=== PATIENT | male | born 1985 | race African-American/Black ===

== ENCOUNTER 2016-06-01 08:50 | Emergency (ER) | payer SELFPAY ==
[2016-06-01 08:53] VITALS: BP 132/60; BMI 21.9
--- NOTE | 2016-06-01 09:12 | DR.GENAD ---
HPI - PCP Primary Care Physician: nfd - Complaint/Symptoms Chief Complaint Doctors Comments: Patient admits to abdominal pain for four days. Denies vomiting, nausea or diarrhea. Last BM was three days ago. His pain is 10/10 ins seveity, not associated with fever, quality is sharp, no modifying factor. Chief Complaint:: diffuse abdominal pain x 4 days - Source History Provided: Patient - Mode of Arrival Mode of Arrival: Ambulatory - Timing Onset of Chief Complaint: 05/28/16 PMH - PMH Past Medical History: No Past Surgical History: No - Family History History of Family Medical Conditions: No - Social History Does patient currently use any type of tobacco product: Yes Have you used tobacco products in the last 12 months: Yes Type of Tobacco Use: Cigarettes Does any household member use tobacco: No Alcohol Use: None Do you use any recreational Drugs:: No Lives With: Family Lives Where: Home - infectious screening In the last 2 months have you had wt loss of >10#?: NO Have you had fever, night sweats or hemotysis?: No Have you traveled outside the country in the last 6 months?: No Isolation: Standard ROS - Review of Systems Constitutional: No Symptoms Reported Eyes: No Symptoms Reported ENTM: No Symptoms Reported Respiratoy: No Symptoms Reported Cardiovascular: No Symptoms Reported Gastrointestinal/Abdominal: See HPI, Abdominal Pain. negative: Diarrhea, Nausea , Vomiting Genitourinary: No Symptoms Reported Neurological: No Symptoms Reported Musculoskeletal: No Symptoms Reported Integumentary: No Symptoms Reported Hematologic/Lymphatic: No Symptoms Reported Endocrine: No Symptoms Reported Psychiatric: No Symptoms Reported All Other Systems: Reviewed and Negative PE - Vital Signs Vitals: Temperature 98.5 F Pulse Rate 49 Respiratory Rate 20 Blood Pressure 132/60 O2 Sat by Pulse Oximetry 96 - General Limitations: No Limitations General Appearance: Alert, In No Apparent Distress - Head Head Exam: Normal Inspection, Atraumatic - Eyes Eye exam: Normal Appearance, PERRL, EOMI - ENT ENT Exam: Normal Exam, Normal Oropharynx External Ear Exam: Normal External Inspection TM/Canal Exam: Bilateral Normal Nose Exam: Normal Nose Exam Mouth Exam: Normal Inspection Throat Exam: Normal Inspection - Neck Neck Exam: Normal Inspection, Full ROM - Chest Chest Inspection: Normal Inspection - Respiratory Respiratory Exam: Normal Lung Sounds Bilat Respiratory Exam: Bilateral Clear to Auscultation - Cardiovascular Cardiovascular Exam: Regular Rate - Abdominal Exam Abdominal Exam: Normal Inspection Abdominal Tenderness: Epigastrium, Suprapubic - Extremities Extremities Exam: Normal Inspection - Back Back Exam: Normal Inspection - Neurologic Neurological Exam: Alert, Oriented X3, CN II-XII Intact - Psychiatric Psychiatric Exam: Normal Affect - Skin Skin Exam: Warm, Dry, Intact ROR - Labs Reviewed Laboratory Results Reviewed?: Yes (H pylori positive) Result Diagrams: 06/01/16 09:31 06/01/16 09:31 Laboratory: WBC 6.5 X10^3/uL (3.6-10.0) 06/01/16 09:31 RBC 4.94 X10^6/uL (4.7-6.0) 06/01/16 09:31 Hgb 14.7 g/dL (13.5-18.0) 06/01/16 09:31 Hct 43.7 % (42.0-54.0) 06/01/16 09:31 MCV 88.5 fL (80.0-100.0) 06/01/16 09: MCH 29.8 pg (27.0-34.0) 06/01/16 09:31 MCHC 33.7 g/dL (33.0-35.0) 06/01/16 09:31 RDW 13.7 % (11.6-16.5) 06/01/16 09:31 Plt Count 203 X10^3/uL (150.0-450.0) 06/01/16 09:31 MPV 9.3 fL (7.4-11.0) 06/01/16 09:31 Neut % 66.7 % (42.0-75.0) 06/01/16 09:31 Lymph % 21.6 % (21.0-51.0) 06/01/16 09:31 [place] % 7.7 % (0.0-13.0) 06/01/16 09: Eos % 1.3 % (0.9-2.9) 06/01/16 09: Baso % 2.7 % (0.2-1.0) H 06/01/16 09:31 Neut # 4.4 x10^3/uL (2.2-4.8) 06/01/16 09:31 Lymph # 1.4 X10^3/uL (1.3-2.9) 06/01/16 09:31 [place] # 0.5 x10^3/uL (0.3-0.8) 06/01/16 09:31 Eos # 0.1 x10^3/uL (0.0-0.2) 06/01/16 09:31 Baso # 0.2 X10^3/uL (0.0-0.1) H 06/01/16 09:31 Absolute Nucleated RBC 0.1 /100WBC 06/01/16 09:31 Sodium 139 mmol/L (136-145) 06/01/16 09:31 Corrected Sodium TNP 06/01/16 09:31 Potassium 4.4 mmol/L (3.5-5.1) 06/01/16 09:31 Chloride 101 mmol/L (98-107) 06/01/16 09:31 Carbon Dioxide 30.1 mmol/L (21-32) 06/01/16 09:31 BUN 12 mg/dL (7-18) 06/01/16 09:31 Creatinine 1.07 mg/dL (0.70-1.30) 06/01/16 09:31 Est GFR (MDRD) Af Amer > 60 (>60) 06/01/16 09:31 Est GFR (MDRD) Non-Af > 60 (>60) 06/01/16 09:31 Glucose 96 mg/dL (65-99) 06/01/16 09:31 Calcium 9.4 mg/dL (8.5-10.1) 06/01/16 09:31 Corrected Calcium TNP 06/01/16 09:31 Total Bilirubin 0.80 mg/dL (0.2-1.0) 06/01/16 09:31 AST 19 Units/L (15-37) 06/01/16 09:31 ALT 16 Units/L (12-78) 06/01/16 09:31 Alkaline Phosphatase 74 Units/L (46-116) 06/01/16 09:31 C-Reactive Protein 10.00 mg/L (0-3.0) H 06/01/16 09:31 Total Protein 8.3 g/dL (6.4-8.2) H 06/01/16 09:31 Albumin 4.2 g/dL (3.4-5.0) 06/01/16 09:31 Globulin 4.1 g/dL (2.5-4.5) 06/01/16 09:31 Albumin/Globulin Ratio 1.0 Ratio (1.1-2.1) L 06/01/16 09:31 H. 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
[2016-06-01] MEDS ORDERED: BENTYL I.M. INJ 10 MG IM ONE ×2 (09:17→09:23)
[2016-06-01 09:49] LABS: ALANINE AMINOTRANSFERASE 16 Units/L (12-78); ALBUMIN 4.2 g/dL (3.4-5.0); ALKALINE PHOSPHATASE 74 Units/L (46-116); ASPARTATE AMINO TRANSFERASE 19 Units/L (15-37); BASOPHILS # (AUTO) 0.2 X10^3/uL (0.0-0.1); BASOPHILS % (AUTO) 2.7 % (0.2-1.0); BLOOD UREA NITROGEN 12 mg/dL (7-18); CALCIUM 9.4 mg/dL (8.5-10.1); CARBON DIOXIDE 30.1 mmol/L (21-32); CHLORIDE 101 mmol/L (98-107); CREATININE 1.07 mg/dL (0.70-1.30); EOSINOPHILS # (AUTO) 0.1 x10^3/uL (0.0-0.2); EOSINOPHILS % (AUTO) 1.3 % (0.9-2.9); GLUCOSE 96 mg/dL (65-99); HEMATOCRIT 43.7 % (42.0-54.0); HEMOGLOBIN 14.7 g/dL (13.5-18.0); LYMPHOCYTES # (AUTO) 1.4 X10^3/uL (1.3-2.9); LYMPHOCYTES % (AUTO) 21.6 % (21.0-51.0); MEAN CORPUSCULAR HEMOGLOBIN 29.8 pg (27.0-34.0); MEAN CORPUSCULAR HGB CONC 33.7 g/dL (33.0-35.0); MEAN CORPUSCULAR VOLUME 88.5 fL (80.0-100.0); MEAN PLATELET VOLUME 9.3 fL (7.4-11.0); MONOCYTES # (AUTO) 0.5 x10^3/uL (0.3-0.8); MONOCYTES % (AUTO) 7.7 % (0.0-13.0); NEUTROPHILS # (AUTO) 4.4 x10^3/uL (2.2-4.8); NEUTROPHILS % (AUTO) 66.7 % (42.0-75.0); PLATELET COUNT 203 X10^3/uL (150.0-450.0); RED BLOOD COUNT 4.94 X10^6/uL (4.7-6.0); RED CELL DISTRIBUTION WIDTH 13.7 % (11.6-16.5); SODIUM 139 mmol/L (136-145); TOTAL PROTEIN 8.3 g/dL (6.4-8.2); WHITE BLOOD COUNT 6.5 X10^3/uL (3.6-10.0); eGFR BLACK RACES > 60 (>60); eGFR NON BLACK RACES > 60 (>60)
[2016-06-01] MEDS ORDERED: LEVSIN/MAALOX/LIDOC VISC PO ONE (10:11)
== END 2016-06-01 10:17 | disposition home or self-care (01) ==
LOC: ER 08:56
DX: K29.70 Gastritis, unspecified, without bleeding (principal)
CPT/HCPCS: 36415; 80053; 85025; 86140; 86677; 96372; 99282; J0500

== ENCOUNTER 2016-10-06 07:35 | Emergency (ER) | payer SELFPAY ==
[2016-10-06 07:41] VITALS: BP 129/71; BMI 23.1
[2016-10-06] MEDS ORDERED: ZOFRAN INJ 4 MG VIAL IM ONE (08:35)
[2016-10-06] MEDS ORDERED: NS 1000 ML 1,000 ML IV ONE (08:35)
--- NOTE | 2016-10-06 08:37 | DR.GENAD ---
HPI - PCP Primary Care Physician: NONE - HPI Comment HPI Comment: HISTORY BELOW. - Complaint/Symptoms Chief Complaint Doctors Comments: NAUSEA, VOMITING, DIARRHEA TIMES3 DAYS. WORSE TODAY. PATIENT IS WEAK. Chief Complaint:: THROWING UP AND RUNNING OFF SINCE LASTNIGHT "IM VERY WEAK" - Nurses notes reviewed Nurses Notes Review: Yes - Source History Provided: Patient - Mode of Arrival Mode of Arrival: Ambulatory - Timing Onset of Chief Complaint: 10/05/16 Came on: Suddenly - Duration Duration: Constant Duration: Days - Severity Severity: Moderate PMH - PMH Past Medical History: No Past Surgical History: No - Family History History of Family Medical Conditions: No - Social History Does patient currently use any type of tobacco product: Yes Have you used tobacco products in the last 12 months: Yes Type of Tobacco Use: Cigarettes How many years tobacco product used: 5 Does any household member use tobacco: No Alcohol Use: None Do you use any recreational Drugs:: No Lives With: Family Lives Where: Home - infectious screening In the last 2 months have you had wt loss of >10#?: NO Have you had fever, night sweats or hemotysis?: No Have you traveled outside the country in the last 6 months?: No Isolation: Standard ROS - Review of Systems Constitutional: Weakness, Fatigue Eyes: No Symptoms Reported ENTM: No Symptoms Reported Respiratoy: No Symptoms Reported Cardiovascular: No Symptoms Reported Gastrointestinal/Abdominal: Abdominal Pain, Diarrhea, Nausea, Vomiting Genitourinary: No Symptoms Reported Neurological: No Symptoms Reported Musculoskeletal: No Symptoms Reported Integumentary: No Symptoms Reported Hematologic/Lymphatic: No Symptoms Reported Endocrine: No Symptoms Reported All Other Systems: Reviewed and Negative PE - Vital Signs Vitals: Temperature 97.8 F Pulse Rate 50 Respiratory Rate 18 Blood Pressure 129/71 O2 Sat by Pulse Oximetry 129 - General Limitations: No Limitations General Appearance: Alert - Head Head Exam: Normal Inspection - Eyes Eye exam: Normal Appearance - ENT ENT Exam: Normal External Ear Exam External Ear Exam: Normal External Inspection TM/Canal Exam: Bilateral Normal Nose Exam: Normal Nose Exam Mouth Exam: Normal Inspection Throat Exam: Normal Inspection - Neck Neck Exam: Normal Inspection - Chest Chest Inspection: Symmetric Chest Wall Rise - Respiratory Respiratory Exam: Normal Lung Sounds Bilat Respiratory Exam: Bilateral Clear to Auscultation - Cardiovascular Cardiovascular Exam: Regular Rate, Normal Rhythm, Normal Heart Sounds - Abdominal Exam Abdominal Exam: Normal Bowel Sounds, Soft, Tenderness Abdominal Tenderness: Diffuse, Moderate - Extremities Extremities Exam: Normal Inspection - Back Back Exam: Normal Inspection - Neurologic Neurological Exam: Alert, Oriented X3 - Psychiatric Psychiatric Exam: Normal Affect - Skin Skin Exam: Dry MDM - Differential Diagnosis Differential Diagnosis: GASTROENTERITIS, ABDOMINAL PAIN Course - Treatment Treatment: SEE ORDERS. - Education/Counseling Education/Counseling: Patient, Education Educated On: Treatment, Diagnosis, Needs for Follow Up ROR - Labs Reviewed Laboratory Results Reviewed?: Yes Result Diagrams: 10/06/16 08:42 10/06/16 08:42 Laboratory: WBC 6.4 X10^3/uL (3.6-10.0) 10/06/16 08:42 RBC 4.94 X10^6/uL (4.7-6.0) 10/06/16 08:42 Hgb 14.9 g/dL (13.5-18.0) 10/06/16 08:42 Hct 43.4 % (42.0-54.0) 10/06/16 08:42 MCV 87.8 fL (80.0-100.0) 10/06/16 08:42 MCH 30.2 pg (27.0-34.0) 10/06/16 08:42 MCHC 34.4 g/dL (33.0-35.0) 10/06/16 08:42 RDW 14.0 % (11.6-16.5) 10/06/16 08:42 Plt Count 182 X10^3/uL (150.0-450.0) 10/06/16 08:42 MPV 9.0 fL (7.4-11.0) 10/06/16 08:42 Neut % 78.4 % (42.0-75.0) H 10/06/16 08:42 Lymph % 11.3 % (21.0-51.0) L 10/06/16 08:42 [place] % 8.3 % (0.0-13.0) 10/06/16 08:42 Eos % 1.6 % (0.9-2.9) 10/06/16 08:42 Baso % 0.4 % (0.2-1.0) 10/06/16 08:42 Neut # 5.0 x10^3/uL (2.2-4.8) H 10/06/16 08:42 Lymph # 0.7 X10^3/uL (1.3-2.9) L 10/06/16 08:42 [place] # 0.5 x10^3/uL (0.3-0.8) 10/06/16 08:42 Eos # 0.1 x10^3/uL (0.0-0.2) 10/06/16 08:42 Baso # 0.0 X10^3/uL (0.0-0.1) 10/06/16 08:42 Absolute Nucleated RBC 0.0 /100WBC 10/06/16 08:42 Sodium 134 mmol/L (136-145) L 10/06/16 08:42 Corrected Sodium TNP 10/06/16 08:42 Potassium 4.2 mmol/L (3.5-5.1) 10/06/16 08:42 Chloride 101 mmol/L (98-107) 10/06/16 08:42 Carbon Dioxide 31.5 mmol/L (21-32) 10/06/16 08:42 BUN 9 mg/dL (7-18) 10/06/16 08:42 Creatinine 1.10 mg/dL (0.70-1.30) 10/06/16 08:42 Est GFR (MDRD) Af Amer > 60 (>60) 10/06/16 08:42 Est GFR (MDRD) Non-Af > 60 (>60) 10/06/16 08:42 Glucose 96 mg/dL (65-99) 10/06/16 08:42 Calcium 8.7 mg/dL (8.5-10.1) 10/06/16 08:42 Corrected Calcium TNP 10/06/16 08:42 Total Bilirubin 0.40 mg/dL (0.2-1.0) 10/06/16 08:42 AST 22 Units/L (15-37) 10/06/16 08:42 ALT 21 Units/L (12-78) 10/06/16 08:42 Alkaline Phosphatase 67 Units/L (46-116) 10/06/16 08:42 Total Protein 7.4 g/dL (6.4-8.2) 10/06/16 08:42 Albumin 3.8 g/dL (3.4-5.0) 10/06/16 08:42 Globulin 3.6 g/dL (2.5-4.5) 10/06/16 08:42 Albumin/Globulin Ratio 1.1 Ratio (1.1-2.1) 10/06/16 08:42 Amylase 67 Units/L (25-115) 10/06/16 08:42 Lipase 71 Units/L (73-393) L 10/06/16 08:42 Specimen Type Clean catch urine 10/06/16 11:02 Urine Color Yellow (YELLOW) 10/06/16 11:02 Urine Appearance Clear (CLEAR) 10/06/16 11:02 Urine pH 5.0 (5.0 - 8.0) 10/06/16 11:02 Ur Specific [place] 1.020 (1.000-1.030) 10/06/16 11:02 Urine Protein Negative (NEGATIVE) 10/06/16 11:02 Urine Glucose (UA) Negative (NEGATIVE) 10/06/16 11:02 Urine Ketones 3+ (NEGATIVE) 10/06/16 11:02 Urine Occult Blood 1+ (NEGATIVE) 10/06/16 11:02 Urine Nitrite Negative (NEGATIVE) 10/06/16 11:02 Urine Bilirubin Negative (NEGATIVE) 10/06/16 11:02 Urine Urobilinogen Normal (NORMAL) 10/06/16 11:02 Ur Leukocyte Esterase Negative (NEGATIVE) 10/06/16 11:02 Urine RBC Rare /HPF (NEGATIVE) 10/06/16 11:02 Urine WBC None seen /HPF (NEGATIVE) 10/06/16 11:02 Ur Squamous Epith Cells Rare /HPF (NEGATIVE) 10/06/16 11:02 Urine Bacteria Negative /HPF (NEGATIVE) 10/06/16 11:02 Urine Mucus Moderate /HPF (NEGATIVE) 10/06/16 11:02 Ur Culture Indicated? No/not indicated 10/06/16 11:02 - XRAY XRAY Interpreted by: Radiologist XRAY Findings: REPORT DISCUSS WITH PATIENT. - Diagnosis Discharge Problem: Gastroenteritis Abdominal pain Qualifiers: Abdominal location: generalized Qualified Code(s): R10.84 - Generalized abdominal pain - Discharge Plan Disposition: 01 HOME, SELF-CARE Condition: Stable Prescriptions: Dicyclomine HCl [Bentyl Cap 10 mg] 10 mg PO TID PRN #15 cap PRN Reason: Diphenoxylate/Atropine [Lomotil] 1 tab PO TID #15 tab Ondansetron HCl [Zofran Tab 4 mg] 4 mg PO Q8H PRN #12 tab PRN Reason: Nausea/Vomiting - Follow ups/Referrals Follow ups/Referrals: RASHIDA,None [Primary Care Provider] - 2 days DALIA CEDEÑO [STAFF PHYSICIAN] - 2 days - Instructions Instructions: Viral Gastroenteritis, Adult, [id number] Additional Instructions: RETURN TO ED IF WORSE.
[2016-10-06] MEDS ORDERED: ZOFRAN INJ 4 MG VIAL IVP ONE (08:45)
[2016-10-06] MEDS ORDERED: ZOFRAN INJ 4 MG VIAL ONE (08:46)
[2016-10-06] MEDS ORDERED: NS 1000 ML 1,000 ML ONE (08:46)
[2016-10-06 09:02] LABS: BASOPHILS % (AUTO) 0.4 % (0.2-1.0); EOSINOPHILS # (AUTO) 0.1 x10^3/uL (0.0-0.2); EOSINOPHILS % (AUTO) 1.6 % (0.9-2.9); HEMATOCRIT 43.4 % (42.0-54.0); HEMOGLOBIN 14.9 g/dL (13.5-18.0); LYMPHOCYTES # (AUTO) 0.7 X10^3/uL (1.3-2.9); LYMPHOCYTES % (AUTO) 11.3 % (21.0-51.0); MEAN CORPUSCULAR HEMOGLOBIN 30.2 pg (27.0-34.0); MEAN CORPUSCULAR HGB CONC 34.4 g/dL (33.0-35.0); MEAN CORPUSCULAR VOLUME 87.8 fL (80.0-100.0); MONOCYTES # (AUTO) 0.5 x10^3/uL (0.3-0.8); MONOCYTES % (AUTO) 8.3 % (0.0-13.0); NEUTROPHILS % (AUTO) 78.4 % (42.0-75.0); PLATELET COUNT 182 X10^3/uL (150.0-450.0); RED BLOOD COUNT 4.94 X10^6/uL (4.7-6.0); WHITE BLOOD COUNT 6.4 X10^3/uL (3.6-10.0)
[2016-10-06 09:18] LABS: ALANINE AMINOTRANSFERASE 21 Units/L (12-78); ALBUMIN 3.8 g/dL (3.4-5.0); ALKALINE PHOSPHATASE 67 Units/L (46-116); AMYLASE 67 Units/L (25-115); ASPARTATE AMINO TRANSFERASE 22 Units/L (15-37); BLOOD UREA NITROGEN 9 mg/dL (7-18); CALCIUM 8.7 mg/dL (8.5-10.1); CARBON DIOXIDE 31.5 mmol/L (21-32); CHLORIDE 101 mmol/L (98-107); GLUCOSE 96 mg/dL (65-99); LIPASE 71 Units/L (73-393); SODIUM 134 mmol/L (136-145); TOTAL PROTEIN 7.4 g/dL (6.4-8.2); eGFR BLACK RACES > 60 (>60); eGFR NON BLACK RACES > 60 (>60)
[2016-10-06] MEDS ORDERED: BENTYL I.M. INJ 10 MG IM ONE ×2 (11:16→11:18)
[2016-10-06 11:23] LABS: APPEARANCE,URINE CLEAR (CLEAR); BACTERIA,URINE NEGATIVE /HPF (NEGATIVE); BILIRUBIN,URINE NEGATIVE (NEGATIVE); BLOOD/HEMOGLOBIN,URINE 1+ (NEGATIVE); COLOR,URINE YELLOW (YELLOW); GLUCOSE, URINE NEGATIVE (NEGATIVE); KETONES,URINE 3+ (NEGATIVE); LEUKOCYTE ESTERASE ,URINE NEGATIVE (NEGATIVE); MUCUS,URINE MODERATE /HPF (NEGATIVE); NITRITES,URINE NEGATIVE (NEGATIVE); PROTEIN,URINE NEGATIVE (NEGATIVE); RBC,URINE RARE /HPF (NEGATIVE); SQUAMOUS EPITHELIAL CELL,UR RARE /HPF (NEGATIVE); UROBILINOGEN,URINE NORMAL (NORMAL)
--- NOTE | 2016-10-06 14:41 | RAD ---
ACUTE ABDOMEN SERIES CLINICAL HISTORY: Pain COMPARISON: None FINDINGS: Unremarkable in pulmonary parenchyma, cardiac silhouette and osseous structures Non obstructive bowel gas pattern. Unremarkable osseous structures. IMPRESSION: Non obstructive bowel gas pattern. Reported By:
== END 2016-10-06 11:24 | disposition home or self-care (01) ==
LOC: ER 07:59
DX: K52.89 Other specified noninfective gastroenteritis and colitis (principal); R10.84 Generalized abdominal pain
CPT/HCPCS: 36415; 74022; 80053; 81001; 82150; 83690; 85025; 96365; 96372; 96374; 99282; 99283; A4222; J0500; J2405

== ENCOUNTER 2017-11-05 19:25 | Observation (INO) ==
[2017-11-05 19:33] VITALS: BMI 21.9
--- NOTE | 2017-11-05 19:56 | RAD ---
FOREARM RADIOGRAPHS: CLINICAL HISTORY: 32-year-old male status post fall COMPARISON: None. FINDINGS: 2 views of the left forearm were obtained. These demonstrate no acute fracture or malalignm ent. The wrist and elbow articulations are congruent on provided views. The mineralization is maint ained. There is no aggressive bone lesion or abnormal periosteal reaction. There is no radiopaque f oreign body, soft tissue calcification or gas. IMPRESSION: No acute fracture or osseous abnormality demonstrated on left forearm radiographs. Reported By:
[2017-11-05] MEDS ORDERED: TORADOL TAB PO ONE ×2 (20:15→20:16)
--- NOTE | 2017-11-05 20:27 | DR.EXTPAIN ---
HPI Time seen Time Seen by Provider: 11/05/17 19:58 PCP Primary Care Physician: edi HPI Comment HPI Comment: INJURY LEFT FOREARM AND ELBOW SUSTAIN WHEN HE FELL OFF THE TOP BUNK AT RESIDENTIAL TONIGHT. INCREASING PAIN SINCE. Complaint/Symptoms Chief Complaint Doctor Comments: FELL OFF TOP BUNK AND LANDED ON HANDS. LEFT ELBOW, WRIST AND FOREARM IS HURTING. NO LOC. Chief Complaint:: PT STATES"I FELL OF THE TOP BUNK AND TRIED TO BREAK MY FALL I FELL ON BOTH MY HANDS BUT MY LEFT WRIST AND ARM IS HURTING REAL BAD" Nurses notes reviewed Nurses Notes Review: Yes Source History Provided: Patient Mode of arrival Mode of Arrival: Ambulatory Timing Onset of Chief Complaint: 11/04/17 Context History of: None Associated signs and symptoms Associated Signs and Symptoms: Pain and Bruising PMH PMH Past Medical History: No Past Surgical History: No Surgical History: No History Family History History of Family Medical Conditions: Yes Family Medical History: Diabetes Mellitus Social History Does patient currently use any type of tobacco product: No Have you used tobacco products in the last 12 months: No Type of Tobacco Use: None Does any household member use tobacco: No Alcohol Use: None Do you use any recreational Drugs:: No Lives With: Family Lives Where: Home infectious screening In the last 2 months have you had wt loss of >10#?: NO Have you had fever, night sweats or hemotysis?: No Have you traveled outside the country in the last 6 months?: No Isolation: Standard ROS Review of Systems Constitutional: No Symptoms Reported Eyes: No Symptoms Reported ENTM: No Symptoms Reported Respiratoy: No Symptoms Reported Cardiovascular: No Symptoms Reported Gastrointestinal/Abdominal: No Symptoms Reported Genitourinary: No Symptoms Reported Neurological: No Symptoms Reported Musculoskeletal: Left, Elbow, Forearm and Wrist Integumentary: Bruises Hematologic/Lymphatic: No Symptoms Reported Endocrine: No Symptoms Reported Psychiatric: No Symptoms Reported All Other Systems: Reviewed and Negative PE Vital Signs Vitals: Temperature 98.2 F Pulse Rate [Apical] 54 Pulse Rate 84 Respiratory Rate 18 Blood Pressure [Right Arm] 146/62 Blood Pressure 126/87 O2 Sat by Pulse Oximetry 98 General Limitations: No Limitations General Appearance: Alert and In No Apparent Distress Head Head Exam: Normal Inspection and Atraumatic Eyes Eye exam: Normal Appearance, PERRL and EOMI; negative Scleral Icterus and Conjunctival Injection Neck Neck Exam: Normal Inspection and Trachea Midline Chest Chest Inspection: Normal Inspection and Symmetric Chest Wall Rise Respiratory Respiratory Exam: Bilateral: Clear to Auscultation Cardiovascular Cardiovascular Exam: Regular Rate and Normal Rhythm Abdominal Exam Abdominal Exam: Normal Inspection, Normal Bowel Sounds and Soft; negative Tenderness Extremities Extremities Exam: Tenderness (TENDERNESS LT ELBOW AND LT WRIST AND LEFT FOREARM WITH DECREASE ROM.) Lower Extremities Neurovascular/Tendon Exam: Normal Capillary Refill; negative Pulse Deficit, Motor Deficit and Sensory Deficit Gait Exam: Observed and Normal Back Back Exam: Normal Inspection Neurological Neurological Exam: Alert, Oriented X3 and CN II-XII Intact; negative Motor Sensory Deficit Psychiatric Psychiatric Exam: Normal Affect and Normal Mood Skin Skin Exam: Erythema MDM Differential Diagnosis Differential Diagnosis: Contusion (LT UPPER EXTREMITY.), Fracture (LT UPPER EXTREMITY.) and Sprain (LT UPPER EXTREMITY.) COURSE Treatment Treatment: SEE ORDERS. Education/Counseling Education/Counseling: Patient and Education Educated On: Diagnosis, Needs for Follow Up and Other ([employer] M[employer] TENDER WHO IS WITH PATIENT LISTEN TO CONVERSION.) ROR Labs Reviewed Result Diagrams: 11/05/17 21:56 11/05/17 21:56 Laboratory: WBC 9.1 X10^3/uL (3.6-10.0) 11/05/17 21:56 RBC 4.46 X10^6/uL (4.7-6.0) L 11/05/17 21:56 Hgb 13.8 g/dL (13.5-18.0) 11/05/17 21:56 Hct 39.5 % (42.0-54.0) L 11/05/17 21:56 MCV 88.5 fL (80.0-100.0) 11/05/17 21:56 MCH 30.8 pg (27.0-34.0) 11/05/17 21:56 MCHC 34.8 g/dL (33.0-35.0) 11/05/17 21:56 RDW 14.3 % (11.6-16.5) 11/05/17 21:56 Plt Count 189 X10^3/uL (150.0-450.0) 11/05/17 21:56 MPV 8.3 fL (7.4-11.0) 11/05/17 21:56 Neut % (Auto) 46.3 % (42.0-75.0) 11/05/17 21:56 Lymph % (Auto) 38.2 % (21.0-51.0) 11/05/17 21:56 [place] % (Auto) 12.1 % (0.0-13.0) 11/05/17 21:56 Eos % (Auto) 3.1 % (0.9-2.9) H 11/05/17 21:56 Baso % (Auto) 0.3 % (0.2-1.0) 11/05/17 21:56 Neut # (Auto) 4.2 x10^3/uL (2.2-4.8) 11/05/17 21:56 Lymph # (Auto) 3.5 X10^3/uL (1.3-2.9) H 11/05/17 21:56 [place] # (Auto) 1.1 x10^3/uL (0.3-0.8) H 11/05/17 21:56 Eos # (Auto) 0.3 x10^3/uL (0.0-0.2) H 11/05/17 21:56 Baso # (Auto) 0.0 X10^3/uL (0.0-0.1) 11/05/17 21:56 Absolute Nucleated RBC 0.1 /100WBC 11/05/17 21:56 Sodium 140 mmol/L (136-145) 11/05/17 21:56 Corrected Sodium 140 mmol/L (136-145) 11/05/17 21:56 Potassium 3.2 mmol/L (3.5-5.1) L 11/05/17 21:56 Chloride 104 mmol/L (98-107) 11/05/17 21:56 Carbon Dioxide 26.9 mmol/L (21-32) 11/05/17 21:56 BUN 12 mg/dL (7-18) 11/05/17 21:56 Creatinine 1.17 mg/dL (0.70-1.30) 11/05/17 21:56 Est GFR (MDRD) Af Amer > 60 (>60) 11/05/17 21:56 Est GFR (MDRD) Non-Af > 60 (>60) 11/05/17 21:56 Glucose 112 mg/dL (65-99) H 11/05/17 21:56 Calcium 9.1 mg/dL (8.5-10.1) 11/05/17 21:56 Corrected Calcium TNP 11/05/17 21:56 Total Bilirubin 0.40 mg/dL (0.2-1.0) 11/05/17 21:56 AST 21 Units/L (15-37) 11/05/17 21:56 ALT 23 Units/L (12-78) 11/05/17 21:56 Alkaline Phosphatase 69 Units/L (46-116) 11/05/17 21:56 Total Protein 7.6 g/dL (6.4-8.2) 11/05/17 21:56 Albumin 4.0 g/dL (3.4-5.0) 11/05/17 21:56 Globulin 3.6 g/dL (2.5-4.5) 11/05/17 21:56 Albumin/Globulin Ratio 1.1 Ratio (1.1-2.1) 11/05/17 21:56 Specimen Type Random urine 11/05/17 22:22 Urine Color Dark yellow (YELLOW) 11/05/17 22:22 Urine Appearance Clear (CLEAR) 11/05/17 22:22 Urine pH 5.0 (5.0 - 8.0) 11/05/17 22:22 Ur Specific [place] 1.025 (1.000-1.030) 11/05/17 22:22 Urine Protein 2+ (NEGATIVE) 11/05/17 22:22 Urine Glucose (UA) Negative (NEGATIVE) 11/05/17 22:22 Urine Ketones 1+ (NEGATIVE) 11/05/17 22:22 Urine Occult Blood Negative (NEGATIVE) 11/05/17 22:22 Urine Nitrite Negative (NEGATIVE) 11/05/17 22:22 Urine Bilirubin Negative (NEGATIVE) 11/05/17 22:22 Urine Urobilinogen 1+ (NORMAL) 11/05/17 22:22 Ur Leukocyte Esterase 1+ (NEGATIVE) 11/05/17 22:22 Urine RBC 3-5 /HPF (NONE SEEN) 11/05/17 22:22 Urine WBC 0-2 /HPF (NONE SEEN) 11/05/17 22:22 Ur Squamous Epith Cells Moderate /HPF (NEGATIVE) 11/05/17 22:22 Urine Bacteria Negative /HPF (NEGATIVE) 11/05/17 22:22 Urine Mucus Moderate /HPF (NEGATIVE) 11/05/17 22:22 Ur Culture Indicated? No/not indicated 11/05/17 22:22 Salicylates < 2.8 mg/dL (2.8-20) L 11/05/17 21:56 Urine Opiates Screen Negative (NEG=<300) 11/05/17 22:22 Urine Methadone Screen Negative (NEG=<300) 11/05/17 22:22 Acetaminophen 0.0 ug/mL (10-30) L 11/05/17 21:56 Ur Barbiturates Screen Negative (NEG=<200) 11/05/17 22: Ur Phencyclidine Scrn Negative (NEG=<25) 11/05/17 22: Ur Amphetamines Screen Negative (NEG=<1000) 11/05/17 22: U Benzodiazepines Scrn Negative (NEG=<200) 11/05/17 22: Urine Cocaine Screen Negative (NEG=<300) 11/05/17 22: U Marijuana (THC) Screen Negative (NEG=<50) 11/05/17: Ethyl Alcohol mg/dL < 3 mg/dL (0-19.9) 11/05/17 21:56 XRAY XRAY Interpreted by: Radiologist XRAY Findings: REPORT DISCUSS WITH PATIENT. Diagnosis Discharge Problem: Contusion of left forearm, Left wrist sprain, Sprain of left elbow Instructions Instructions: Contusion Elbow Contusion, [id number] Wrist Sprain, Adult
[2017-11-05 22:04] LABS: BASOPHILS % (AUTO) 0.3 % (0.2-1.0); EOSINOPHILS # (AUTO) 0.3 x10^3/uL (0.0-0.2); EOSINOPHILS % (AUTO) 3.1 % (0.9-2.9); HEMATOCRIT 39.5 % (42.0-54.0); HEMOGLOBIN 13.8 g/dL (13.5-18.0); LYMPHOCYTES # (AUTO) 3.5 X10^3/uL (1.3-2.9); LYMPHOCYTES % (AUTO) 38.2 % (21.0-51.0); MEAN CORPUSCULAR HEMOGLOBIN 30.8 pg (27.0-34.0); MEAN CORPUSCULAR HGB CONC 34.8 g/dL (33.0-35.0); MEAN CORPUSCULAR VOLUME 88.5 fL (80.0-100.0); MEAN PLATELET VOLUME 8.3 fL (7.4-11.0); MONOCYTES # (AUTO) 1.1 x10^3/uL (0.3-0.8); MONOCYTES % (AUTO) 12.1 % (0.0-13.0); NEUTROPHILS # (AUTO) 4.2 x10^3/uL (2.2-4.8); NEUTROPHILS % (AUTO) 46.3 % (42.0-75.0); PLATELET COUNT 189 X10^3/uL (150.0-450.0); RED BLOOD COUNT 4.46 X10^6/uL (4.7-6.0); RED CELL DISTRIBUTION WIDTH 14.3 % (11.6-16.5); WHITE BLOOD COUNT 9.1 X10^3/uL (3.6-10.0)
[2017-11-05 22:18] LABS: SALICYLATE < 2.8 mg/dL (2.8-20)
[2017-11-05 22:19] LABS: ALANINE AMINOTRANSFERASE 23 Units/L (12-78); ALKALINE PHOSPHATASE 69 Units/L (46-116); ASPARTATE AMINO TRANSFERASE 21 Units/L (15-37); BLOOD ALCOHOL < 3 mg/dL (0-19.9); BLOOD UREA NITROGEN 12 mg/dL (7-18); CALCIUM 9.1 mg/dL (8.5-10.1); CARBON DIOXIDE 26.9 mmol/L (21-32); CHLORIDE 104 mmol/L (98-107); COR NA(FOR HYPERGLY) 140 mmol/L (136-145); CREATININE 1.17 mg/dL (0.70-1.30); SODIUM 140 mmol/L (136-145); TOTAL PROTEIN 7.6 g/dL (6.4-8.2); eGFR NON BLACK RACES > 60 (>60)
--- NOTE | 2017-11-05 22:33 | CT ---
Indication: Pain Exam: CT abdomen and pelvis without contrast. Technique: Axial spiral images were obtained from lung bases through the pubic symphysis without cont rast. Coronal and sagittal multiplanar reconstructions were performed. Findings: There is motion artifact throughout the exam. The lung bases are clear. The liver and splee n are normal size density. The gallbladder, pancreas, and adrenals are normal. The kidneys are normal size with no hydronephrosis or renal stones. There is no adenopathy or ascites . There is no bowel o bstruction. The mesentery is unremarkable. The bladder is unremarkable . The bones are intact. The ap pendix is not well visualized and there is no pericecal inflammation. Impression: Limited exam due to motion artifact throughout the study. Within the limitations of the study, no obv ious acute abnormality can be seen. Reported By:
[2017-11-05 22:38] LABS: BILIRUBIN,URINE NEGATIVE (NEGATIVE); BLOOD/HEMOGLOBIN,URINE NEGATIVE (NEGATIVE); GLUCOSE, URINE NEGATIVE (NEGATIVE); KETONES,URINE 1+ (NEGATIVE); LEUKOCYTE ESTERASE ,URINE 1+ (NEGATIVE); NITRITES,URINE NEGATIVE (NEGATIVE); PROTEIN,URINE 2+ (NEGATIVE); UROBILINOGEN,URINE 1+ (NORMAL)
[2017-11-05 22:58] LABS: APPEARANCE,URINE CLEAR (CLEAR); BACTERIA,URINE NEGATIVE /HPF (NEGATIVE); COLOR,URINE DARK YELLOW (YELLOW); MUCUS,URINE MODERATE /HPF (NEGATIVE); SQUAMOUS EPITHELIAL CELL,UR MODERATE /HPF (NEGATIVE)
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
[2017-11-06] MEDS: TORADOL TAB PO PRN ×2 (11:28→20:30)
[2017-11-06] MEDS: NS + KCL 20 MEQ/L 1,000 ML IV SCH ×2 (20:21→20:22)
[2017-11-07 06:24] LABS: BASOPHILS % (AUTO) 0.4 % (0.2-1.0); EOSINOPHILS # (AUTO) 0.1 x10^3/uL (0.0-0.2); EOSINOPHILS % (AUTO) 1.3 % (0.9-2.9); HEMATOCRIT 40.1 % (42.0-54.0); HEMOGLOBIN 14.1 g/dL (13.5-18.0); LYMPHOCYTES # (AUTO) 1.6 X10^3/uL (1.3-2.9); LYMPHOCYTES % (AUTO) 22.8 % (21.0-51.0); MEAN CORPUSCULAR HEMOGLOBIN 30.8 pg (27.0-34.0); MEAN CORPUSCULAR HGB CONC 35.1 g/dL (33.0-35.0); MEAN CORPUSCULAR VOLUME 87.9 fL (80.0-100.0); MEAN PLATELET VOLUME 8.3 fL (7.4-11.0); MONOCYTES # (AUTO) 0.8 x10^3/uL (0.3-0.8); MONOCYTES % (AUTO) 10.9 % (0.0-13.0); NEUTROPHILS # (AUTO) 4.5 x10^3/uL (2.2-4.8); NEUTROPHILS % (AUTO) 64.6 % (42.0-75.0); PLATELET COUNT 179 X10^3/uL (150.0-450.0); RED BLOOD COUNT 4.56 X10^6/uL (4.7-6.0); WHITE BLOOD COUNT 6.9 X10^3/uL (3.6-10.0)
[2017-11-07 06:37] LABS: ALANINE AMINOTRANSFERASE 23 Units/L (12-78); ALBUMIN 3.5 g/dL (3.4-5.0); ALKALINE PHOSPHATASE 67 Units/L (46-116); ASPARTATE AMINO TRANSFERASE 25 Units/L (15-37); BLOOD UREA NITROGEN 7 mg/dL (7-18); CALCIUM 8.8 mg/dL (8.5-10.1); CARBON DIOXIDE 27.3 mmol/L (21-32); CHLORIDE 103 mmol/L (98-107); CREATININE 0.97 mg/dL (0.70-1.30); SODIUM 138 mmol/L (136-145); TOTAL PROTEIN 7.2 g/dL (6.4-8.2); eGFR NON BLACK RACES > 60 (>60)
[2017-11-07 08:24] VITALS: BP 146/77
[2017-11-07] MEDS: TORADOL TAB PO PRN (08:31)
[2017-11-07] MEDS: NS + KCL 20 MEQ/L 1,000 ML IV SCH (08:31)
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
== END 2017-11-07 11:25 | disposition home or self-care (01) ==
LOC: ER 19:26 → OBS 19:26 → ER 20:31 → OBS 11-06 06:38
PROVIDERS: ADMIT Internal Medicine; ATTEND Internal Medicine
DX: S50.12XA Contusion of left forearm, initial encounter; W06.XXXA Fall from bed, initial encounter; S63.592A Other specified sprain of left wrist, initial encounter; F14.90 Cocaine use, unspecified, uncomplicated; Y92.143 Cell of prison as the place of occurrence of the external cause; E87.6 Hypokalemia; S53.492A Other sprain of left elbow, initial encounter
CPT/HCPCS: 36415; 73090; 74176; 80053; 80307; 80320; 81001; 85025; 93005; 93010; 96365; 99283; 99284; A4222; G0378; G0434; G6038; G6039; G6040